=== PATIENT | female | born 2005 | race Hispanic/Latino ===

== ENCOUNTER 2024-09-10 00:47 | Emergency (ER) | payer SELFPAY ==
[~2024-09-10] VITALS: Ht 167.6 cm; Wt 78.5 kg
--- NOTE | 2024-09-10 01:13 | ERN ---
ED Note History of Present Illness Stated Complaint: C/O DIZZINESS, HEADACHE, N X V, SOB, ABD PAIN Chief Complaint: Multiple Complaints Time Seen by MD: 00:49 Time Seen by Midlevel: 00:49 Dictation: Patient is a 18-year-old female with a history of liposuction who presents to the emergency department with multiple complaints. Patient reports headache, nausea nonbloody vomiting, epigastric pain, dizziness, shortness of breath onset four days ago. Patient denies any head trauma, fevers, diarrhea constipation. Denies any cough or ear pain, sore throat. Allergies: Coded Allergies: No Known Allergies (Unverified Allergy, Unknown, 09/10/24) Home Meds Active Scripts Pantoprazole Sodium (Pantoprazole Sodium) 20 Mg Tablet.dr, 1 TAB PO DAILY for 30 Days, #30 TAB 0 Refills Prov:[facility]ASKAR [facility] 09/10/24 Ondansetron (Ondansetron Odt) 4 Mg Tab.rapdis, 4 MG PO Q6HPRN PRN for nausea, #16 TAB 0 Refills Prov:BHASKAR FAULKNER [facility] 09/10/24 Past Medical History Past Medical History: No Pertinent History Surgical History: Other Surgical History Other: LIPOSUCTION LMP: Aug 19, 2024 RN Note Reviewed/Agreed w/PFSH: Yes Review of System Dictation Constitutional: Negative for fever,chills, and weight loss Eyes: Negative for injury, pain,redness, and discharge ENT: Negative for injury,pain or swelling Cardiovascular: Negative for chest pain, palpitations, and edema Respiratory: Negative for , cough, and wheezing, positive for shortness of breath Abdomen/GI: Negative for diarrhea, and constipation positive for abdominal pain, nausea, vomiting, Back: Negative for injury and pain : Negative for injury, bleeding and discharge MS/Extremity: Negative for injury and deformity Skin: Negative for rash, and discoloration Neuro: Negative for, weakness, numbness, tingling, and seizure positive for headache, dizziness Psych: Negative for suicide ideation, homicidal ideation, and hallucinations Initial Vital Sign VS Vital Signs Date Time Temp Pulse Resp B/P (MAP) Pulse Ox O2 Delivery O2 Flow Rate FiO2 09/10/24 00:50 98.2 94 20 116/78 100 Room Air 09/10/24 01:07 0 21 Physical Exam Dictation Vital Signs reviewed General Appearance: Alert, oriented x 3, no acute distress, well developed, nourished. Head and Face: non-traumatic. Eyes: PERRL, pink conjunctivas, eyelid no trauma, anterior chamber with arcus senilis. Ears: Pinnas intact and no signs of trauma or erythema ear canals clear and no discharge TM no erythema Nose: No discharge, no bleeding. Oropharynx: Mouth normal, tongue pink. pharynx clear,no erythema, tonsils no exudates, no abscesses noted, mucous membrane moist Neck: Supple, non-tender, no thyromegaly, no masses, no JVD, no bruits Breast:Deferred Chest:No tenderness, no crepitus, no paradoxical movement, no retractions Lungs:Clear, well-ventilated, symmetric, no rales, no wheezing, no rhonchi, no stridor, good breath sounds bilaterally Heart: Regular rate, regular rhythm, no murmur, no gallops Vascular: no peripheral edema, Abdomen: Soft, positive bowel sounds, nondistended, no guarding, nontender, no rebound, no masses no hepatomegaly, no splenomegaly, no Funes's sign, no hernias. Rectal: Deferred Genital: Deferred Neurological: Normal speech, motor function intact, sensory function intact , upper extremities equal in strength, lower extremities equal in strength Musculoskeletal: Neck nontender, full range of motion, back nontender, full range of motion, Extremities: nontender, full range of motion Skin: Color pink, dry, no turgor, no rash, no lacerations, no abrasions, no contusions. Lymphatic: Deferred Results (Laboratory/Radiology) Laboratory/Radiology Laboratory Tests Test 09/10/24 01:15 09/10/24 02:28 White Blood Count 7.9 K/uL (4.8-10.8) Red Blood Count 4.19 MIL/uL (4.00-5.50) Hemoglobin 12.0 g/dL (12.0-16.0) Hematocrit 36.4 % (36-48) Mean Corpuscular Volume 86.9 fL (80-100) Mean Corpuscular Hemoglobin 28.6 pg (27.0-33.0) Mean Corpuscular Hemoglobin Concent 33.0 g/dL (32.0-36.0) Red Cell Distribution Width 12.1 % (11.0-15.5) Platelet Count 331 K/uL (130-400) Mean Platelet Volume 11.2 fL (7.5-10.5) H Immature Granulocyte % (Auto) 0.3 % (0-1) Neutrophils (%) (Auto) 53.2 % (40.0-77.0) Lymphocytes (%) (Auto) 37.4 % (21.0-51.0) Monocytes (%) (Auto) 6.9 % (3.0-13.0) Eosinophils (%) (Auto) 1.7 % (0.0-8.0) Basophils (%) (Auto) 0.5 % (0.0-5.0) Neutrophils # (Auto) 4.2 K/uL (1.8-7.7) Lymphocytes # (Auto) 2.9 K/uL (1.0-4.8) Monocytes # (Auto) 0.5 K/uL (0.1-1.0) Eosinophils # (Auto) 0.13 K/uL (0.00-0.70) Basophils # (Auto) 0.04 K/uL (0.00-0.20) Absolute Immature Granulocyte (auto 0.02 K/uL (0-1) Nucleated Red Blood Cells 0.0 % (0.0-0.19) Sodium Level 139 mmol/L (136-145) Potassium Level 4.4 mmol/L (3.5-5.1) Chloride Level 102 mmol/L (101-111) Carbon Dioxide Level 28 mmol/L (21-32) Blood Urea Nitrogen 8 mg/dL (7-18) Creatinine 0.7 mg/dL (0.5-1.0) Glomerular Filtration Rate Calc 127 mL/min (>90) Random Glucose 89 mg/dL (70-105) Total Calcium 9.1 mg/dL (8.5-10.1) Magnesium Level 1.80 mg/dL (1.80-2.40) Total Bilirubin 0.1 mg/dL (0.2-1.0) L Direct Bilirubin 0.1 mg/dL (0.0-0.3) Aspartate Amino Transf (AST/SGOT) 28 U/L (10-37) Alanine Aminotransferase (ALT/SGPT) 42 U/L (12-78) Alkaline Phosphatase 62 U/L (50-136) Total Creatine Kinase 63 U/L (21-232) Troponin I High Sensitivity < 4 ng/L (4-50) L Total Protein 6.9 g/dL (6.0-8.3) Albumin 3.2 g/dL (3.5-5.0) L Lipase 41 U/L (16-77) Urine Color COLORLESS (YELLOW) Urine Appearance CLEAR (CLEAR) Urine pH 6.0 (5.0-8.0) Urine Specific [place] 1.002 (1.001-1.031) Urine Protein NEGATIVE mg/dL (NEGATIVE) Urine Glucose (UA) NEGATIVE mg/dL (NEGATIVE) Urine Ketones NEGATIVE mg/dL (NEGATIVE) Urine Occult Blood NEGATIVE (NEGATIVE) Urine Nitrate NEGATIVE (NEGATIVE) Urine Bilirubin NEGATIVE mg/dL (NEGATIVE) Urine Urobilinogen 0.2 mg/dL (0.2-1.0) Urine Leukocyte Esterase NEGATIVE [place]/uL Urine HCG, Qualitative NEGATIVE (NEGATIVE) Urine Opiates Screen NEGATIVE (NEGATIVE) Urine Barbiturates Screen NEGATIVE (NEGATIVE) Urine Phencyclidine Screen NEGATIVE (NEGATIVE) Urine Amphetamines Screen NEGATIVE (NEGATIVE) Urine Benzodiazepines Screen NEGATIVE (NEGATIVE) Urine Cocaine Screen NEGATIVE (NEGATIVE) Urine Marijuana (THC) Screen NEGATIVE (NEGATIVE) Labs Reviewed?: Yes EKG: (+) rhythm (Sinus rhythm) EKG Comment: Date:09/10/2024 Time:128 Ventricular rate:83 TN interval:169 QRS duration:79 QT/QTc:430 EKG interpretation: Sinus rhythm Reviewed by ED Attending no STEMI ED Course ED Course Orders Procedure Category Date Status Time Cbc With Differential LAB 09/10/24 Complete 01:06 Troponin I High LAB 09/10/24 Complete Sensitivity 01:06 ,Urine Test LAB 09/10/24 Complete 01:06 Urinalysis Profile LAB 09/10/24 Complete 01:06 12 Lead Ekg Tracing- EKG 09/10/24 Logged Technical 01:06 0.9%Nacl 1000ml (Ns PHA 09/10/24 Complete 1000ml) 01:30 Ondansetron 4mg Inj PHA 09/10/24 Complete (Zofran 4mg Inj) 01:30 Pantoprazole 40mg Inj PHA 09/10/24 Complete (Protonix 40mg Inj 01:30 Creatine Kinase, Total LAB 09/10/24 Complete 01:06 Chest 1vw RAD 09/10/24 Taken 01:06 Lipase LAB 09/10/24 Complete 01:06 Basic Metabolic Panel LAB 09/10/24 Complete 01:06 Hepatic Function Panel LAB 09/10/24 Complete 01:06 Drug Screen Urine LAB 09/10/24 Complete 01:06 Magnesium LAB 09/10/24 Complete 01:06 Acetaminophen 500mg PHA 09/10/24 Complete Tab (Tylenol 500mg T 01:30 Hydrocodone/Apap PHA 09/10/24 Complete 10/325 Tab (Garrett 10) 01:30 Current Medications Medications (Trade) Dose Ordered Sig/Carlito Route PRN Reason Start Time Stop Time Status Last Admin Dose Admin Acetaminophen (TYLenol 500MG TAB) 1,000 mg ONCE ONCE PO 09/10/24 01:30 09/10/24 01:31 DC 09/10/24 01:23 Acetaminophen/ Hydrocodone Bitart (NORco 10) 1 tab ONCE ONCE PO 09/10/24 01:30 09/10/24 01:38 DC Ondansetron HCl (zoFRAN 4MG INJ) 4 mg ONCE ONCE IVP 09/10/24 01:30 09/10/24 01:31 DC 09/10/24 01:23 Pantoprazole Sodium (PROTonix 40MG INJ) 40 mg ONCE ONCE IVP 09/10/24 01:30 09/10/24 01:31 DC 09/10/24 01:23 Sodium Chloride 1,000 ml @ 0 mls/hr ONCE ONCE IV 09/10/24 01:30 09/10/24 01:31 DC 09/10/24 01:22 Vital Signs Date Time Temp Pulse Resp B/P (MAP) Pulse Ox O2 Delivery O2 Flow Rate FiO2 09/10/24 03:01 98.6 94 20 128/74 100 Room Air* 0 21 09/10/24 01:07 98.6 95 20 130/85 100 Room Air* 0 21 09/10/24 00:50 98.2 94 20 116/78 100 Room Air Medical Decision Making MDM Patient is a 18-year-old female with a history of liposuction who presents to the emergency department with multiple complaints. Patient reports headache, nausea nonbloody vomiting, epigastric pain, dizziness, shortness of breath onset four days ago. Patient denies any head trauma, fevers, diarrhea constipation. Denies any cough or ear pain, sore throat. CBC Showed no leukocytosis, no anemia, chemistry showed no electrolyte imbalance, GFR of 127, negative liver enzymes, negative lipase, negative troponin, urinalysis unremarkable, hCG negative, toxicology negative, patient in no acute distress, nontoxic appearance, nontender abdomen, neurologically intact. We will be discharged to follow up with PCP. Differential diagnosis: Dehydration, electrolyte imbalance, anxiety, gastritis, gastroenteritis Need for hospitalization: Patient does not meet criteria for hospitalization. There are no social concerns with this patient. Patient's labs and chest x-ray are normal. DX & DISP Disposition: Discharge Departure Impression: Primary Impression: Gastritis Additional Impressions: Headache, Nausea and vomiting Condition: Stable Scripts Pantoprazole Sodium (Pantoprazole Sodium) 20 Mg Tablet.dr 1 TAB PO DAILY for 30 Days, #30 TAB 0 Refills Prov: BHASKAR FAULKNER 09/10/24 Ondansetron (Ondansetron Odt) 4 Mg Tab.rapdis 4 MG PO Q6HPRN PRN for nausea, #16 TAB 0 Refills Prov: BHASKAR FAULKNER 09/10/24 Additional Instructions: Please follow up with the primary doctor in 1-2 days. If symptoms worsen please return to ER. FOLLOW-UP WITH PRIMARY CARE PROVIDER IN 1 TO 2 DAYS. TAKE MEDICATIONS DIRECTED HERE IN THE EMERGENCY ROOM. OKAY TO CONTINUE HOME MEDICATIONS UNLESS OTHERWISE DISCUSSED DURING YOUR VISIT IN THE EMERGENCY ROOM TODAY. RETURN TO YOUR NEAREST EMERGENCY ROOM IF SYMPTOMS WORSEN OR IF THERE IS NO IMPROVEMENT. CALL 911 IF YOU NEED IMMEDIATE ASSISTANCE. TAKE TYLENOL OR MOTRIN [id number] NEEDED AND IF NO CONTRAINDICATIONS ARE PRESENT. INCREASE ORAL HYDRATION. A WOUND CULTURE OR URINE CULTURE WAS ORDERED HERE IN THE EMERGENCY ROOM DEPARTMENT PLEASE FOLLOW-UP WITH PRIMARY CARE PROVIDER AND ADVISE THEM TO GET REPEAT PORTS FROM OUR FACILITY. IF YOU HAD ANY GAVINO WRAP/SPLINTS THAT WERE APPLIED HERE, PLEASE DO NOT REMOVE THEM UNTIL YOU SEE YOUR PRIMARY CARE OR SPECIALTY. I have reviewed the case, and I agree with, Diagnosis and Plan BHASKAR FAULKNER Sep 10, 2024 01:13 GUERITA NOBLE MD Sep 10, 2024 03:28
[2024-09-10 01:22] LABS: BASOPHILS # (AUTO) 0.04 K/uL (0.00-0.20); BASOPHILS % (AUTO) 0.5 % (0.0-5.0); EOSINOPHILS # (AUTO) 0.13 K/uL (0.00-0.70); EOSINOPHILS % (AUTO) 1.7 % (0.0-8.0); HEMATOCRIT 36.4 % (36-48); IMMATURE GRANULOCYTE ABSOLUTE 0.02 K/uL (0-1); LYMPHOCYTES # (AUTO) 2.9 K/uL (1.0-4.8); LYMPHOCYTES % (AUTO) 37.4 % (21.0-51.0); MEAN CORPUSCULAR HEMOGLOBIN 28.6 pg (27.0-33.0); MEAN CORPUSCULAR VOLUME 86.9 fL (80-100); MONOCYTES # (AUTO) 0.5 K/uL (0.1-1.0); MONOCYTES % (AUTO) 6.9 % (3.0-13.0); NEUTROPHILS # (AUTO) 4.2 K/uL (1.8-7.7); NEUTROPHILS % (AUTO) 53.2 % (40.0-77.0); PLATELET COUNT (AUTO) 331 K/uL (130-400); RED BLOOD CELL COUNT(AUTO) 4.19 MIL/uL (4.00-5.50); RED CELL DISTRIBUTION WIDTH 12.1 % (11.0-15.5); WHITE BLOOD COUNT (AUTO) 7.9 K/uL (4.8-10.8)
[2024-09-10] MEDS: 0.9%NACL 1000ML 1,000 ML IV ONE (01:22)
[2024-09-10] MEDS: acetaMINOPHEN 500 MG TABLET PO ONE (01:23)
[2024-09-10] MEDS: ondanSETRON 4MG INJ IVP ONE (01:23)
[2024-09-10] MEDS: PANTOPrazole 40 MG/VIAL IVP ONE (01:23)
[2024-09-10] MEDS ORDERED: HYDROcodone/acetaMINOPHEN 10/325 MG TAB PO ONE (01:30)
[2024-09-10 01:31] LABS: CREATININE 0.7 mg/dL (0.5-1.0); POTASSIUM 4.4 mmol/L (3.5-5.1)
[2024-09-10 01:36] LABS: ALBUMIN 3.2 g/dL (3.5-5.0); BILIRUBIN,DIRECT 0.1 mg/dL (0.0-0.3); BILIRUBIN,TOTAL 0.1 mg/dL (0.2-1.0); MAGNESIUM 1.8 mg/dL (1.80-2.40); TOTAL PROTEIN, SERUM 6.9 g/dL (6.0-8.3)
[2024-09-10 02:45] LABS: APPEARANCE,URINE CLEAR (CLEAR); BILIRUBIN,URINE NEGATIVE (NEGATIVE); COLOR,URINE COLORLESS (YELLOW); GLUCOSE, URINE (UA) NEGATIVE (NEGATIVE); KETONES,URINE NEGATIVE (NEGATIVE); LEUKOCYTE ESTERASE ,URINE NEGATIVE Leu/uL (NEGATIVE); NITRATE,URINE NEGATIVE (NEGATIVE); OCCULT BLOOD,URINE NEGATIVE (NEGATIVE); PROTEIN,URINE NEGATIVE (NEGATIVE); UROBILINOGEN,URINE 0.2 mg/dL (0.2-1.0)
[2024-09-10 02:47] LABS: ADD UA MICROSCOPIC NO
[2024-09-10 02:48] LABS: HCG,QUALITATIVE URINE NEGATIVE (NEGATIVE)
[2024-09-10 02:51] LABS: AMPHET/METH SCREEN,URINE NEGATIVE (NEGATIVE); BARBITURATE SCREEN, URINE NEGATIVE (NEGATIVE); BENZODIAZEPINES SCREEN,URINE NEGATIVE (NEGATIVE); CANNABINOID SCREEN,URINE NEGATIVE (NEGATIVE); COCAINE SCREEN,URINE NEGATIVE (NEGATIVE); OPIATE SCREEN,URINE NEGATIVE (NEGATIVE); PHENCYCLIDINE SCREEN,URINE NEGATIVE (NEGATIVE)
[2024-09-10] MEDS ORDERED: PANT20TA18 PO (02:56)
[2024-09-10] MEDS ORDERED: ONDA-243 PO (02:56)
[2024-09-10 03:30] VITALS: BP 122/70; PULSE 94; RESP 20; TEMP 98.6; O2SAT 100
--- NOTE | 2024-09-10 04:11 | NUR ---
PATIENT LEFT BEHIND HER BLACK PURSE, CALLED PHONE NUMBER ON FILE MULTIPLE TIMES, CHARANJIT, MANUFACTURING TECHNOLOGIST TOOK THE BELONGINGS AND PLACED IT IN LOST AND FOUND
--- NOTE | 2024-09-10 06:55 | EKG ---
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
--- NOTE | 2024-09-10 08:27 | HMCIMG ---
CHEST 1VW HISTORY: Jaundice of breath COMPARISON: None FINDINGS: A frontal projection of the chest was obtained. No acute pulmonary infiltrates is seen. The heart is normal in size. Prominent interstitial markings are seen. No evidence of aortic calcification is seen. IMPRESSION: 1. No acute pulmonary infiltrate is seen.
== END 2024-09-10 03:28 | disposition home or self-care (01) ==
LOC: EDH 00:47
DX: K29.70 Gastritis, unspecified, without bleeding (principal); R51.9 Headache, unspecified; R11.2 Nausea with vomiting, unspecified; Z79.899 Other long term (current) drug therapy
CPT/HCPCS: 99285; 96374; 71045; 96375; 82550; 80076; 83735; 84484; 80048; 80305; 83690; 85025; 81003; 81025; 36415; 93005; J7030; J2405; J2470